=== PATIENT | female | born 1995 | race Caucasian/White ===

== ENCOUNTER → 2016-12-13 | Outpatient (CLI) | payer OTHER ==
--- NOTE | 2016-12-13 12:43 | Diagnostic Imaging Report ---
Right breast ultrasound. TECHNIQUE: All four quadrants and the retroareolar region were examined on this study. INDICATION: Lump in the 1:30 o'clock position. The patient has history of prior lumpectomy for phyllodes tumor. FINDINGS: At 1:30 o'clock position, 4 cm from the nipple, there is a lobulated hypoechoic mass with internal vascularity seen and through-transmission measuring 1.5 x 0.9 x 1.2 cm. This could be a fibroadenoma. There is no other definite mass seen in the retroareolar region or four quadrants. There is however at the lumpectomy site at 10:30 o'clock position 8 cm from the nipple a small area of hypoechoic abnormality measuring 1.4 x 0.5 x 0.7 cm with no internal vascularity likely related to a scar at the lumpectomy site. IMPRESSION: Solid lobulated mass at 1:30 o'clock position, 4 cm from the nipple. Ultrasound-guided biopsy is recommended to ensure this is not a malignant lesion although benign etiology is favored. The findings and recommendations were discussed with the patient and family just before this dictation. ACR BI-RADS Category 4A: Low suspicion of malignancy. Result letter will be mailed to the patient. Note: At least 10% of breast cancer is not imaged by mammography. Report was stat faxed to office of Dr. Jade Tam @ 12:36 PM/[place]. Dictated by: Dictated on workstation # [id number]
== END ==
LOC: RAD 11:33
PROVIDERS: ATTEND Family Medicine
DX: N63.10 Unspecified lump in the right breast, unspecified quadrant (principal)
CPT/HCPCS: 76641

== ENCOUNTER → 2020-10-14 | Outpatient (CLI) | payer OTHER ==
--- NOTE | 2020-10-14 11:03 | Diagnostic Imaging Report ---
INDICATION: Palpable lump left breast. Sonographic Interrogation of the outer left breast from 12:00 to 6:00 location was performed. No sonographic abnormality is seen. No solid or cystic mass is detected. IMPRESSION: BI-RADS Category 1 No sonographic abnormality is detected. ACR BI-RADS Category 1: Negative. Result letter will be mailed to the patient. Note: At least 10% of breast cancer is not imaged by mammography. Dictated by: Dictated on workstation # [id number]
== END ==
LOC: RAD 09:15
PROVIDERS: ATTEND Nurse Practitioner Family
DX: N63.20 Unspecified lump in the left breast, unspecified quadrant (principal)
CPT/HCPCS: 76642